=== PATIENT | female | born 1985 | race Caucasian/White ===

== ENCOUNTER 2016-10-20 10:18 | Day surgery (SDC) | payer OTHER ==
[~2016-10-20] VITALS: Ht 170.2 cm; Wt 122.6 kg
[2016-10-20] VITALS (7 sets, daily range): BP systolic 115–137; BP diastolic 55–101; PULSE 86–120; RESP 12–25; O2SAT 90–98
[2016-10-20] MEDS: CeFAZolin Inj 3,000 MG in Dextrose 5% 100 ML IV SCH ×2 (06:00→12:30)
[~2016-10-20 10:18] MED LIST: ALBU18HF INH; DROS1TAB5 PO; FEXO-106 PO; FLUT16SP NS; LORA0.5T PO; Lactated Ringer's 1,000 ML IV SCH
[2016-10-20] MEDS ORDERED: fentaNYL-PF 50 mCg/mL 2 mL Inj ONE (10:19)
[2016-10-20] MEDS ORDERED: Propofol 10,000 mCg/mL 20 mL Inj ONE (10:19)
[2016-10-20] MEDS ORDERED: Ondansetron 2 mg/mL 2 mL Inj ONE (10:19)
[2016-10-20] MEDS ORDERED: MetoCLOpramide 5 mg/mL 2 mL Inj ONE (10:19)
[2016-10-20] MEDS ORDERED: Neostigmine 1 mg/mL 5 mL Inj ONE (10:19)
[2016-10-20] MEDS ORDERED: Glycopyrrolate 0.2 mg/mL 5 mL Inj ONE (10:19)
[2016-10-20] MEDS ORDERED: Morphine PF 1 mg/mL 10 mL Inj ONE (10:19)
[2016-10-20] MEDS ORDERED: Rocuronium 10 mg/mL 5 mL Inj ONE (10:19)
[2016-10-20] MEDS ORDERED: Dexamethasone 4 mg/mL Inj ONE (10:19)
[2016-10-20] MEDS ORDERED: CeFAZolin Inj 3 Gm/ D5W 50 mL Bag IV ONE (10:34)
[2016-10-20] MEDS ORDERED: Lactated Ringer's 1,000 ML IV ONE (11:05)
[2016-10-20] MEDS ORDERED: Lactated Ringer's 500 ML IV PRN (13:07)
[2016-10-20] MEDS ORDERED: Lactated Ringer's 1,000 ML IV SCH (13:07)
--- NOTE | 2016-10-20 13:07 | PCM.HPANE ---
Patient Data Date of Service: Oct 20, 2016 (1200) Surgeon Admitting Provider: Attending Provider:Cheo Skinner MD Primary Care Physician:Letty Otero Other Provider:Yazan Barton Anesthesia Reason for Visit Menorrhagia With Regular Cycle, Urinary Incontinen Ht/WT & BMI Height (Feet): 5 Height (Inches): 7 Weight (Kilograms): 118.4 Body Mass Index 40.00 Allergies Coded Allergies: codeine (Verified Allergy, Unknown, 10/20/16) Past Anesthesia History Anesthesia History: Denies:: Abnormal Airway, Anesthesia Reactions, Difficult Intubation, Fam Anesthesia Reaction Diabetes History Hx Diabetes?: No MRSA MRSA: No Medications Hypertension Medication: No Home Meds Incl Beta Elias: No Reported Medications Lorazepam 0.5 Mg Tablet0.5 Mg PO TID PRN For Anxiety Ref 0 10/19/16 Fexofenadine 180 Mg Psgcih249 Mg PO DAILY 10/19/16 Drospir/Eth Estra/Levomefol Ca (Furfi-Qv-Uybkcme 3-0.02-0.451)3-0.02(24) Tablet1 Each PO DAILY please skip placebo tabs 10/19/16 Discontinued Reported Medications Albuterol Sulfate (Ventolin HFA Inhaler)200 Puff/18 Gm Inhaler2 Puff INH Q4 PRN For Wheezing #1 INHALER Ref 0 10/19/16 Fluticasone Propionate (Fluticasone Propionate Nasal)16 Gm [place].susp[place] BID #16 GM Ref 0 10/19/16 Pnv Comb.no58/Iron Bisgly/Fa-Expunged Drug, D (-Expunged Drug, Do Not Renew!)1 Each Capsule1 Each PO DAILY 11/28/13 Discontinued Scripts [Oxycodone/Acetaminophen] (Percocet 5/325 mg)1 TAB TABLET No Conflict Check1-2 Tab PO Q3H PRN For Pain #40 TABLET Prov:Mary Jane Montana MD 01/24/14 Ibuprofen 800 Mg Apcyht648 Mg PO Q6H PRN For Pain #30 TABLET Prov:Mary Jane Montana MD 01/24/14 [Docusate Sodium] (Colace)100 MG CAPSULE No Conflict Mtscg777 Mg PO BID #14 CAPSULE Prov:Mary Jane Montana MD 4/30/14 History History of ENT Problems?: Yes HEENT History: Denies:: Abnormal Airway Cataracts Difficult Intubation Dysphagia Glaucoma Hearing Problem Sinus Problem TMJ Hx of Heart Problems?: No Cardiovascular History: Denies:: AICD Coronary Artery Disease Edema Heart Murmur Hypertension Irregular Heartbeat Pacemaker Peripheral Vascular Hx of Respiratory Problem?: No Respiratory History: Denies:: Asthma COPD Emphysema Oxygen Administration Pneumonia Tuberculosis Use of C-PAP Machine Hx Neurologic Problems?: Yes Neurological History: Positive for:: Headaches Denies:: CVA Dementia Dizziness Multiple Sclerosis Parkinson's Disease Seizures TIA Hx of GI Problems?: Yes Gastrointestinal History: Positive for:: Gall Bladder Disease (removed) Heartburn (only when ) Denies:: Diverticulitis Gastroesphageal Reflux Gastrointestinal Bleeding Hepatitis Hiatal Hernia Rectal Bleeding Hx of Problems?: Yes Genitourinary History: Positive for:: Urinary Tract Infection Denies:: Kidney Stones Female Hx: Denies:: Currently Endometriosis Pelvic Inflammatory Problems with Breasts? Skin History: Denies:: History Skin Disorders? Pressure Ulcers Hx Musculoskeletal Problems?: No Musculoskeletal History: Denies:: Back Injury Joint Replacement Musculoskeletal Trauma Myasthenia Gravis Osteoarthritis Rheumatoid Arthritis Hx of Psycho/Social Problems?: No Psycho Social History: Denies:: Anxiety Bipolar Disorder Hx Depression Suicide Attempt Hx Surgeries?: Yes (codi, tonsillectomy, removal of adenoids, foot sx) Hx Any Other Health Problems?: Yes Other History: Denies:: Cancer Endocrine Disease Hospitalization Thyroid Disease History Blood Transfusions: Positive for:: Accept Blood Products? Denies:: Blood Transfusions Hx Diabetes: No Hx Alcohol Use: NoHx Substance Use: NoHave You Smoked inLast 12 mo: No Stop/Bang S-Snoring: Do You Snore Loudly: No T-Tired: feel tired, fatigued: No O-Obsered: Observed not breath: No P-Blood Pressure: treated: No B- Body Mass Index > 35 kg/m2: Yes A- Age over 50: No N- Neck Large Circumference: Yes G- Gender Male: No JOSE ENRIQUE Total Score: 2 Risk Assessment Category Category 1A: Patient has history of documented sleep apnea, and HAS NOT received any narcotic, sedative or anesthesia administration during this stay. Category 1B: Patient has history of documented sleep apnea, and HAS received any narcotic , sedative or anesthesia administration during this stay Category 2: Patient has SUSPECTED Obstructive Sleep Apnea, and HAS received any narcotic , sedative or anesthesia administration during this stay. Category 3: Patient has SUSPECTED Obstructive Sleep Apnea and HAS NOT received narcotic, sedative or anesthesia administration during this stay. Category 4: Outpatient in Procedural Areas with known sleep apnea or who screen positive for High Risk via the STOP/BANG questionnaire. Exam Exam Vital Signs Vital Signs Date Time Temp Pulse Resp B/P Pulse Ox O2 Delivery O2 Flow Rate FiO2 10/20/16 10:45 36.3 90 16 98 Room Air General Appearance: Alert, Oriented X3, Cooperative, No Acute Distress HEENT/AIRWAY: MP 2, Neck Movement (large neck circumference, FROM), Mouth Opening (3 FBMO) Lungs: Clear to Auscultation, Normal Air Movement Heart: Exam Unremarkable, Regular Rate/Rhythm, No Murmurs/Rubs/Gallops Meds/Labs/Diagnostics Admission Meds Current Medications Lactated Ringer's (Lr) 1,000 ml @ ud STK-MED ONCE IV Last administered on 10/20t 11:05; Start 10/20/16 at 11:05; Stop 10/20/16 at 11:06; Status DC Plan Impression Patient chart reviewed, patient interviewed and anesthestic plan with risks, benefits, and alternatives discussed, and informed consent obtained. NPO Status: 10/19/16 1700 ASA Physical Status: ASA3 Severe Disease (BMI 40) Anesthetic Support Modalities: [place] Scope Anesthetic Plan: GA, SAB (duramorph spinal for postoperative pain relief. Risks of bleeding, infection, back pain, ALARCON, nerve damage discussed. AQA. Consent signed.) Bene/Risks/Altern/Consents: Yes HP Complete Prior to Induction: Yes Nehemiah Garcia MD Oct 20, 2016 13:07
[2016-10-20] MEDS ORDERED: Phenylephrine 10,000 mCg/mL Inj IVPUSH PRN (13:10)
[2016-10-20] MEDS ORDERED: Ondansetron 2 mg/mL 2 mL Inj IVPUSH PRN ×2 (13:10→15:20)
[2016-10-20] MEDS ORDERED: Labetalol 5 mg/mL 4 mL Inj IV PRN (13:10)
[2016-10-20] MEDS ORDERED: EPHEDrine Sulfate 50 mg/mL Inj IVPUSH PRN (13:10)
[2016-10-20] MEDS ORDERED: HYDROmorphone 1 mg/mL Inj IVPUSH PRN (13:10)
[2016-10-20] MEDS ORDERED: Atropine 0.4 mg/mL Inj IVPUSH PRN (13:10)
[2016-10-20] MEDS ORDERED: hydrALAZINE 20 mg/mL Inj IVPUSH PRN (13:10)
[2016-10-20] MEDS ORDERED: fentaNYL-PF 50 mCg/mL 2 mL Inj IVPUSH PRN (13:10)
[2016-10-20] MEDS ORDERED: Gentamicin 40 mg/mL 2 mL Inj IRRIGATION ONE (13:16)
[2016-10-20] MEDS ORDERED: Bupivacaine-MPF 0.5% W/EPI 30 mL Inj INFILTRATE ONE ×2 (13:17→14:28)
[2016-10-20] MEDS ORDERED: Acetaminophen IV 1,000 MG in IV Premix 1 EACH IV PRN (15:20)
[2016-10-20] MEDS ORDERED: Alum-Mag Hydrox-Simeth 30 mL Suspension PO PRN (15:20)
--- NOTE | 2016-10-20 15:20 | PCM.ANEP1 ---
Post Anesthesia Phase 1 PACU Phase 1 Assessment Date of Service: Oct 20, 2016 (1200) Vital Signs Vital Signs Date Time Temp Pulse Resp B/P Pulse Ox O2 Delivery O2 Flow Rate FiO2 10/20/16 10:45 36.3 90 16 98 Room Air Anesthetic Administered: GA Level of Alertness: Awake, talking QUEZADA's with Equal Strength: Yes Pain: No Nausea or Vomiting: No Oxygen Delivery: Simple Mask Lungs: Clear to Auscultation, Normal Air Movement Dermatome Level: Full Sensation Nehemiah Garcia MD Oct 20, 2016 15:20
--- NOTE | 2016-10-20 15:20 | PCM.ANEP2 ---
Post Anesthesia Evaluation ASA/CMS Post Anesthesia VS in Patient's Normal Range?: Yes Resp Stable; Airway Patent?: Yes CV Function & Hydration Stable: Yes Mental Status Recovered?: Yes Pain control Satisfactory?: Yes N/V Control Satisfactory?: Yes Nehemiah Garcia MD Oct 20, 2016 15:20
--- NOTE | 2016-10-20 15:53 | PCM.SURGOP ---
Surgical Operative Report Date of Service: Oct 20, 2016 Pre Operative Diagnosis 1. Abnormal uterine bleeding, heavy menstrual bleeding, failing medical management 2. Stress urinary incontinence 3. Obesity Post Operative Diagnosis 1. Abnormal uterine bleeding, heavy menstrual bleeding, failing medical management 2. Stress urinary incontinence 3. Obesity 4. Small ventral hernia below umbilicus Procedure: 1. Total laparoscopic hysterectomy 2. Right salpingectomy 3. Cystoscopy 4. Midurethral sling with [employer]vantage Surgeon and Retail Consultant: Surgeon: Cheo Skinner MD Assistants: Kamlesh Dwyer MD, Dr.'s expertise and assistance was necessary for safe completion of this case. Indication for Procedure Mary is a very nice 31 y/o who I have seen regarding her AUB-HMB and dysmenorrhea for some time. She has tried cyclic and continuous oral contraception with continuous daily bleeding. She is not interested in an IUD or other treatment, she was interested in definitive therapy. She is finished with child bearing. She desired hysterectomy. She also has a longstanding reports of daily, regular stress incontinence. She was doing kegels. She is not interested in pessary. She had a normal UA and PVR of 65. She desires surgical treatment with sling. Risks, benefits and alternatives were reviewed in detail with the patient in the office and consents signed. Findings: Bimanual exam revealed a small, mobile, anteverted uterus with Grade 1 prolapse. Grade 1 cystocele also noted. Grade 1 rectocele noted - no rectal exam performed. Normal vaginal rugation. Uterus sounded to 7.5cm. Normal uterus, tubes and ovaries. The left fallopian tube and ovary were adhered to the IP and internal iliac artery. Decision made to leave left tube in place for this reason. She has a midline, below the umbilicus small ventral hernia with omental adhesion. Mild scarring of the bladder to the uterus related to previous deliveries. Normal liver, stomach, intestines, bilateral ureters. Cystoscopy revealed normal bladder without lesions or injury. Normal bilateral ureteral orifice with bilateral strong ureteral jets. Procedure Details The patient was taken the operating room where she was placed under general anesthesia without difficulty. She was then positioned in dorsal supine lithotomy in [facility]. A time-out was performed prior to the start of the procedure. The patient was prepped and draped in the normal sterile fashion. Attention was turned to the patient's vagina where a speculum was placed and the tenaculum anteriorly to visualize the cervix. A medium VCare uterine manipulator was then placed without difficulty. The speculum and tenaculum were removed. Atkinson catheter was placed. Attention was turned to the patient's abdomen where a Veress needle was carefully introduced into the umbilicus. Intraabdominal placement was confirmed with drop of a water-filled syringe and a drop in CO2 pressure. The abdomen was then insufflated. The Veress needle was removed and a 5 mm trocar incision was made. The trocar was then placed with direct visualization and placement was confirmed with a laparoscope. Under direct visualization, 2 additional 5 mm ports were then placed, one on the patient's left side and one on the patient's right side. Survey of the patient's abdomen revealed above findings. The ovarian fossa was inspected on either side and the ureteral peristalsis was noted bilaterally. The Thunderbeat was used to take down the omentum adhered to the ventral hernia. The patient's left tube and ovary were adherent to the internal iliac artery and decision made to forego the left salpingectomy. Starting on the patient's left side, the utero-ovarian ligament was then incised and ligated using the Thunderbeat device, then taken down followed by the left round ligament. The anterior leaf of the broad ligament was then and the bladder flap was created using . The posterior leaf of the broad ligament was then taken down to skeletonize the uterine vessels. The uterine vessels were ligated. This was repeated on the right, but the right tube was included in the dissection for salpingectomy. The right uterine vessels were taken down past the vaginal cuff. Using the Thunderbeat, a colpotomy was made circumferentially around the Vcare manipulator. The uterus and cervix were then delivered through the vagina. A weighted speculum was placed and the peritoneum of the vaginal cuff was closed using 0-Vicryl in a pursestring fashion. The cuff was then closed in a running locked fashion with 0-Vicryl. The CO2 was removed of the abdomen with the aid of two deep breath and all trocars were removed. The skin incisions were closed with 4-0 Vicryl and Dermabond. Attention was turned to the cystoscope. The Atkinson catheter was then removed and the cystoscope was gently advanced into the urinary bladder. The bladder appeared normal with no defects. Bilateral ureteral jets were visualized. The cystoscope was then removed and the Atkinson catheter was replaced. Suburethral vaginal epithelium was grasped with the Allis clamps in the midline with approximately 2 cm between. The vaginal epithelium was then injected with approximately 10 mL total of 0.5% Marcaine with epinephrine. The vagina was then incised between the clamps with a 15 blade scalpel. Additional clamp was placed on each side and tunnel between incisional opening in the pubic rami was created at approximately 45-degree angle sharply with Metzenbaum scissors and bluntly bilaterally. Attention was then turned to the pubic symphysis. Her trocar sites were measured approximately 1.5 fingerbreadths from the midline just above the pubic symphysis and these sites were marked and stab incisions were made with the 11 blade scalpel. Atkinson catheter with catheter guide was used to deflect the blader to the right or left with trocar insertion. The Advantage trocar was advanced from the vaginal incision behind the pubic ramus through the suprapubic incision bilaterally. Once these were placed, the cystoscopy was performed and revealed normal bladder mucosa within normal limits, without lesions and no evidence of bladder perforation. Cystoscope was removed. The TVT sling was advanced through the suprapubic incisions without difficulty. The sheath was cut and removed, and the sling was tensioned over Valenzuela scissors. The mesh was cut at the suprapubic site. Suprapubic sites were closed with Dermabond. The vaginal incision was closed with 2-0 Vicryl in a running, locked fashion. Catheter guide and other instruments removed. Vaginal packing placed. The patient tolerated the procedure well. Sponge, lap, and instrument counts were correct x2 at the close of the procedure. IVF: 1100mL Crystalloid UOP: 250mL Clear VTE Prophylaxis: SCDs and early and frequent ambulation Antibiotic Prophylaxis: 3g Cefazolin Complications There were no periprocedural complications identified. Surgical Specimen Removed: Yes Specimen sent to Pathology: Yes Surgical Specimen description: Uterus, cervix, right tube. Anesthetic Plan: GA, SAB (duramorph spinal for postoperative pain relief. Risks of bleeding, infection, back pain, ALARCON, nerve damage discussed. AQA. Consent signed.) Grafts, Implants: Implants-See Implant Record ([employer] Advantage midurethral sling) Output, Estimated Blood Loss: 200 (mL) Blood Administration during palacios: No Catheters: Urethral 2 Way Cheo Coyne MD Oct 20, 2016 15:53
[2016-10-20] MEDS ORDERED: hydrOXYzine Pamoate 25 mg Capsule ONE (17:01)
[2016-10-20] MEDS: Lactated Ringer's 1,000 ML IV SCH (17:44)
[2016-10-20] MEDS ORDERED: Albuterol 2.5 mg/3 mL Inhalation Solution NEB PRN (18:35)
--- NOTE | 2016-10-20 20:14 | NUR ---
Post Op Pt arrived to OSC unit, 1024, from PACU at 1800. Arrived via gurney, ambulated 1[place] from [place] to bed, DAMIEN, DAIANA SL, Denies pain but c/o itchiness all over. 5x puncture sites CDI with dermabond, Vaginal packing and peripad in place, Atkinson patent with blue/green urine, VSS, Oriented to room and call light. Mother present at bedside. Care continues.
[2016-10-20] MEDS: oxyCODONE-Acetamin 5-325 mg Tablet PO PRN ×2 (20:49→22:55)
[2016-10-21 00:12] VITALS: BP 113/73; PULSE 105; RESP 18; O2SAT 96
[2016-10-21] MEDS: Lactated Ringer's 1,000 ML IV SCH ×3 (01:48→23:16)
[2016-10-21] MEDS: oxyCODONE-Acetamin 5-325 mg Tablet PO PRN ×8 (03:23→22:04)
[2016-10-21 04:07] VITALS: BP 93/53; PULSE 99; RESP 18; O2SAT 94
--- NOTE | 2016-10-21 06:18 | NUR ---
Pain/ vag packing Pt reporting vaginal pain/discomfort up to 01/04. Pt is taking 1 tab of Percocet q3-4 hrs and is allowed to have 2 tabs q4 hrs. Pt request to have extra pain meds given before taking out vag packing, Tordal given as well as Percocet. Vag packing dc'd at 0530. Pt absolutely adamant the fabian stay in until later today (which pt said she discussed with MD). Fabian had out 1600 ml this shift. Pt has been itching all over with centralized facial redness throughout the night. Benadryl 25 mg IV given q4 hrs. Claritin given early to help decrease itching as well. Pt reporting the itching is finally starting to subside. Pt denies nausea or SOB.
[2016-10-21 06:55] LABS: BASOPHILS % (AUTO) 0.2 % (0-3); EOSINOPHILS % (AUTO) 0.3 % (0-5); MONOCYTES % (AUTO) 5.6 % (4-12); Mean Corpuscular Hemoglobin 27.8 pg (27.0-35.0); Mean Corpuscular Volume 86.3 fL (81-100); NEUTROPHILS % (AUTO) 81.8 % (40-74); Platelet Count 243 bil/L (150-400)
--- NOTE | 2016-10-21 07:55 | PCM.PNSURG ---
Subjective Date of Service: Oct 21, 2016 Date of Service: Oct 21, 2016 Visit Information: Reason for Visit Menorrhagia With Regular Cycle, Urinary Incontinen Surgery/Surgery Date Post-Op Day # Date of Admission: Hospital Day # Subjective: Ms. Chang is 31 y/o with pertinent PMH of AUB which had failed medical management, stress urinary incontinence and obesity s/p total laparoscopic hysterectomy, right salpingectomy, cystoscopy and mid urethral sling with [employer] [employer]vantage. Pt tolerated procedure well with no adverse events. Overnight: Pt reports pruritic throughout the night. Benadryl was given without much effect. Claritin was given with symptomatic improvement throughout the night. Her pain is well controlled with her oral pain meds. Vaginal packing was removed at 05:00, however Atkinson cath was not removed as Pt was unsure of directions and did not want it removed. She has made 1600 cc of urine through catheter. She is ambulatory, has good appetite, denies passing of stool of flatus. Denies fever/chills, N/V, CP, SOB, Abdominal redness or warmth - ABD is mildly tender diffusely. Postop General: No Complaints, No Shortness of Breath, No Chest Pain Gastrointestinal: Good Appetite, Tolerating Oral Feedings, No N/V, No Belching Pain Management: PO Postop Activity: Ambulate without Assist Objective Vital Sign- Last 8 Hours Date Time Temp Pulse Resp B/P Pulse Ox O2 Delivery O2 Flow Rate FiO2 10/21/16 04:07 37.1 99 18 93/53 94 Room Air 10/21/16 00:12 36.9 105 18 113/73 96 Room Air Intake and Output- Last 8 Hour 10/21/16 Cumulative From/Thru 07:00 10/19/16 17:12 - 10/21/16 06:16 Intake Total 2706 ml 4906 ml Output Total 1600 ml 2600 ml Balance 1106 ml 2306 ml Intake Oral 1272 ml 1672 ml IV Total 1434 ml 3234 ml Output Urine Total 1600 ml 2200 ml Estimated Blood Loss 400 ml General: Alert, Oriented X3, Cooperative Neck: Full Range of Motion Lungs: Clear to Auscultation, Normal Air Movement Heart: Exam Unremarkable, Regular Rate/Rhythm (Difficult to accuratly auciltate secondary to body habitus) Abdomen: Soft, Appropriately tender, Non-distended Extremities: Distal Pulses Palpable Neuro: Cranial Nerves 2-12 nl, Grossly Neurologically Intact, Strength at 5/5 x4 ext, Sensation Intact Catheters: Straight Result Diagram: 10/21/16 0555 Additional Information: Lap incision sites are not erythremic or warm to palpation. No fluid drainage noted. Assessment & Plan Impression 31 female s/p total laparoscopic hysterectomy, right salpingectomy, cystoscopy and mid urethral sling with [employer] [employer] Advantage. Hospital day 2. Problems: (1) Abnormal uterine bleeding (AUB) Plan: Pt s/p TLH. reports no excessive vaginal bleeding or discharge. Pain well controlled. Will D/C Atkinson cath with urine output trial to follow. If successful urinary output will discharge Pt to home. Status: Resolved ICD Code: N93.9 VTE Prophylaxis: SCDs Resuscitation Status: CPR: Attempt Resuscitation Attending Statement: The patient was seen and examined together with Dr. Bhakta on 10/21/2016 and I agree with the history, exam and plan as outlined in the note above. / MD ABDIRIZAK Martinez GILES A DO Oct 21, 2016 07:55 Cheo Skinner MD Nov 18, 2016 16:40
[2016-10-21 11:50] VITALS: BP 144/84; PULSE 110; RESP 16; O2SAT 99
--- NOTE | 2016-10-21 11:53 | NUR ---
Atkinson per doctor orders Atkinson out this AM with out difficulty. patient has not have any out put yet. patient has been walking and taking fluids and states," i am there, it is so close." Bladder scan 307CC. called Dr Miller and orders received to straight catheter and start with zero again. notified patient and refused straight catheter and wants to try going to bathroom for voiding. will continue to monitor.
--- NOTE | 2016-10-21 11:56 | NUR ---
Social Work Screen Note: Patient is a 31 year old female admitted under [facility] for menorrhagia with regular cycle, urinary. Patient payer as Carlin. Patient PCP as MD Otero. Patient resides in [facility] with Harish, who provides support and care. Patient pharmacy of choice as [facility]. Patient has no previous HHC, SNF, or DME history. Patient states having AD and was encouraged to bring in for hospital records. Patient denied any discharge needs at this time. SW to follow as further needs arise. PLAN: Home with , pending clinical course. No anticipated discharge needs identified at this time. SW to follow. Stephanie CRAIN
--- NOTE | 2016-10-21 16:35 | NUR ---
Update Pt very frustrated throughout first part of shift d/t not being able to void. Also frustrated with care and pain management. This nurse took over care. Spoke with pt and family regarding situation. Spoke with tool machine shop supervisor and communications manager Jacob regarding situation. Pt stated that she drank 3180 mls fluid starting at 0930 1355= void 300 PVR 480 1445= void 480 pvr 535 1515= void [address] skinner and spoke with her ~1515. MD states to call her back with 1515. Called back with PVR 495. MD states for this nurse to straight cath her. Spoke with pt regarding MDs orders and pt agreed to let this nurse straight cath @ 1615. 800mls via straight cath out with pvr of 0. Dr. Skinner to floor so speak with pt ~ 1645. This nurse spoke with MD and updated with issues. New orders for pt to void by 8pm with pvr and call MD with update. Pt aware that she may need a fabian. care conts.
[2016-10-21 20:00] VITALS: BP 104/70; PULSE 91; RESP 18; O2SAT 96
[2016-10-22] MEDS: oxyCODONE-Acetamin 5-325 mg Tablet PO PRN ×3 (02:00→08:04)
[2016-10-22 04:55] VITALS: BP 115/71; PULSE 82; RESP 16; O2SAT 96
--- NOTE | 2016-10-22 05:03 | NUR ---
Pain/Voiding/Activity Pain of abdomen and shoulders managed with toradol and Percocet- pt prefers 1x a time, 2x given once with good results. Pt aware of void trials Q4 and necessity for catheter in case of retention. MD notified of PVR 125mls at 2000 and 230 at 2330, Will call MD with PVR >250 this shift. Subsequent PVR 0 at 0200, 67 at 0345. Pt ambulating in hallway and calls appropriately. No complaints of chest pain, N/V, SOB. Care continues
[2016-10-22] MEDS: Lactated Ringer's 1,000 ML IV SCH (07:16)
--- NOTE | 2016-10-22 07:40 | PCM.DC.SUR ---
Discharge Summary Date of Service: Oct 22, 2016 Date of Hospital Admission: Date of Discharge: 10/22/2015 Diagnosis at Time of Discharge Post Operative Diagnosis 1. Abnormal uterine bleeding, heavy menstrual bleeding, failing medical management 2. Stress urinary incontinence 3. Obesity 4. Small ventral hernia below umbilicus Problems: (1) Abnormal uterine bleeding (AUB) Plan: Pt s/p TLH. reports no excessive vaginal bleeding or discharge. Pain well controlled Status: Resolved ICD Code: N93.9 (2) DURAN (stress urinary incontinence, female) Plan: Pt received a midurethral sling with Higginson scientific advantage. Is able to void with no PVR Status: Chronic ICD Code: N39.3 Operation Procedure: Brief History and Physical: Ms. Chang is a pleasant 31 y/o who underwent an elective total laparoscopic hysterectomy secondary to abnormal uterine bleeding which was refractory to medical management, right salpingectomy and midurethral sling with Higginson scientific advantage. Physical Exam: VS: BP - 115/71, P - 82, RR - 16, temp - 36.2, 96% RA HEENT: Pupils dilated 5mm slow to react. No conjunctival pallor. Moist mucosa. Cardiovascular: RRR no skips gallops or murmurs Pulmonary: CTA bilaterally, no use of accessory muscles. No wheezes or rhonchi ABD: Obese, soft and mildly tender to palpation. Surgical incision sites intact with no erythema, warmth or drainage. EXT: Good pedal pulses bilaterally, no lower ext edema. Upper extremities - full ROM bilaterally. Px with active movement bilateral shoulders. Hospital Course: Ms. Chang is a pleasant 31 y/o who underwent an elective total laparoscopic hysterectomy, right salpingectomy, cystoscopy and midurethral sling with Higginson scientific advantage. Pt tolerated procedure well. During recovery post op recovery the next day Pt had her vaginal plug removed at 05:00 and her Atkinson cath removed at 07:00 on 10/21/2015. She was unable to void throughout the day which required an in and out cath to drain her bladder. On the night morning of 10/22 Pt was able to void, putting out a total of 950ml, and per nurse had a post void residual of 0 ml after her last void. Disposition: Discharge to home in stable condition. Pt able to ambulate without difficulty, denies fever, chills, N/V, CP, SOB. Is able to void urine and is passing flatus. Follow-up Plan: Follow up in [facility] with scheduled appointment Drospir/Eth Estra/Levomefol Ca ([id number] 3-0.02-0.451) 3-0.02(24) Tablet 1 EACH PO DAILY (Reported) please skip placebo tabs Fexofenadine (Fexofenadine) 180 Mg Tablet 180 MG PO DAILY (Reported) Lorazepam (Lorazepam) 0.5 Mg Tablet 0.5 MG PO TID PRN PRN For Anxiety (Reported ) Discharge Medications: Pt has already filled Rx at home prior to surgery Attending Statement: The patient was seen and examined together with Dr. Bhakta on 10/21/2016 and I agree with the history, exam and plan as outlined in the note above. / MD ABDIRIZAK Martinez GILES A DO Oct 22, 2016 07:40 Cheo Skinner MD Nov 18, 2016 16:41
--- NOTE | 2016-10-22 07:44 | PCM.DIMED ---
Discharge Instructions Date of Service Oct 22, 2016 Dates of Hospitalization 10/20/2015 Discharge Diagnosis Discharge Diagnosis 1. Abnormal uterine bleeding, heavy menstrual bleeding, failing medical management 2. Stress urinary incontinence 3. Small ventral hernia below umbilicus Diet No restrictions Activity Limited until seen by PCP Call your provider Fever or Chills, Shortness of breath, Bleeding, Chest pain, Vomitting, Excessive diarrhea, Weakness (unilateral) Patient Instructions Please follow up at the [facility] clinic at your scheduled appointment. No heavy lifting (anything greater than 10 pounds for 8 weeks). Pelvic rest for 8 weeks - nothing in the vagina including sexual intercourse for 8 weeks. Please take your prescriptions for pain management and stool softeners as needed. If you have a fever greater than 100.4, please call [facility]. 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 If you have an increase in bleeding, call [facility]. If you have a lot of bleeding suddenly, especially if you have symptoms of dizziness & weakness with it, get emergency help. You have been through a lot -- BE SURE TO TAKE CARE OF YOURSELF. TIM REVELES DO Oct 22, 2016 07:44
--- NOTE | 2016-10-22 10:44 | NUR ---
Social Work Continued Discharge Planning and Discharge: Order for discharge acknowledged. Plan is home with in [facility] after voiding today. Patient ambulating and independent with needs. No identified discharge needs identified at this time. Plan is home pending clinical course. SW to follow pending clinical course. PLAN: Home with , pending clinical course. SW to follow if further needs arise. Stephanie CRAIN
--- NOTE | 2016-10-22 12:16 | NUR ---
Discharge Orders for discharge were received. The patient was made aware of the plan and was agreeable to go. The patient was given information about her diagnosis and treatment, follow up instructions, signs and symptoms to be aware of, medications to continue or discontinue and informations regarding her medications. The patient stated understanding of this information and her asymptomatic IV was removed intact. The patient was then dressed in her own clothing and her belongings gathered. The patient was then wheeled to the main entrance where she ambulated into an awaiting private vehicle. At the time of discharge the patient was alert and oriented, able to void, vital signs stable and laparoscopic sites dry and well approximated.
--- NOTE | 2016-10-22 17:28 | PATH ---
SURGICAL PATHOLOGY Attending Physician:Cheo Skinner MD CASE STATUS: Signed Out PATIENT NAME: GRAYSON GUTIERREZ PID: [id number] : 1985 DATE COLLECTED:10/20/2016 23:17 SPECIMEN: Uterus +/- tubes/ovaries, except neoplastic, prolapse CLINICAL HISTORY: ABNORMAL UTERINE BLEEDING 1). UTERUS WITH RIGHT FALLOPIAN TUBE FINAL DIAGNOSIS: Uterus with Right Fallopian Tube: Uterus (112 grams) with benign proliferative endometrium. Negative for hyperplasia, atypia and neoplasia. Fallopian tube with no pathologic alterations. ICD10 N93.9 GROSS DESCRIPTION: The specimen is received in formalin, labeled with the patient's name, sublabeled as uterus w/ right fallopian tube, and consists of a uterus (112 g, 4.7 cm AP, 8.8 cm SI, 5.8 cm ML) with an attached right fimbriated fallopian tube (length-6.5 cm, diameter-0.6 cm). The ovaries and left fallopian tube are absent. The cervix (2.5 x 2.5 cm) has a transverse os and patent endocervical canal. The endometrium (average thickness-0.2 cm) is draper-pink smooth and flat. The myometrium (thickness-2.5 cm) is draper and unremarkable. The serosa is draper smooth and shiny. The fallopian tube has bach-purple smooth shiny serosa and a draper unremarkable lumen. Section code: (A) anterior cervix; (B) posterior cervix; (C-D) anterior endomyometrium; (E, F) posterior endomyometrium; (G) fallopian tube, serially sectioned, logistics service representative; (H) fimbria, bivalved, entirely submitted. 10/21/16 JM MICRO DESCRIPTION: Please see diagnosis. ICD-9 CODES: CPT CODES: 1: 85360 Electronically Signed Out Tamara Jimenez MD [facility] [address], [place] [address] Technical component performed at [facility], [address], [place], [address]
== END 2016-10-22 11:02 | disposition home or self-care (01) ==
LOC: SAS 10:18 → OSC 17:23 → SAS 10-22 11:02
PROVIDERS: ATTEND Obstetrics & Gynecology
DX: N93.9 Abnormal uterine and vaginal bleeding, unspecified (principal); N39.3 Stress incontinence (female) (male); N92.0 Excessive and frequent menstruation with regular cycle; K43.9 Ventral hernia without obstruction or gangrene; J30.2 Other seasonal allergic rhinitis; F41.9 Anxiety disorder, unspecified; E66.9 Obesity, unspecified; Z68.41 Body mass index [BMI] 40.0-44.9, adult; Z90.49 Acquired absence of other specified parts of digestive tract
CPT/HCPCS: 36415; 57288; 58571; 85025; 88307; C1771; J0690; J1100; J1200; J1580; J2250; J2274; J2405; J2710; J2765; J3010; J7120; Q0177